=== PATIENT | female | born 1990 | race Caucasian/White ===

== ENCOUNTER 2018-12-01 11:29 | Emergency (ER) | payer OTHER ==
[~2018-12-01] VITALS: Ht 165.1 cm; Wt 48.5 kg
[2018-12-01 11:47] VITALS: BP 127/85
[2018-12-01] MEDS ORDERED: HYDROcodone/APAP 5/325 TABLET PO ONE (12:30)
[2018-12-01] MEDS ORDERED: HYDROcodone/APAP 5/325 TABLET ONE (12:37)
--- NOTE | 2018-12-01 12:58 | NUR ---
PT GIVEN DC INSTRUCTIONS AND SCRIPTS. PT EDUCATED REGARDING DC MEDICATIONS. PT AMB TO DC WITH STEADY GAIT. NO ACUTE DISTRESS AT DC.
== END 2018-12-01 12:59 | disposition home or self-care (01) ==
LOC: ED 12:53
DX: S90.32XA Contusion of left foot, initial encounter (principal); Z90.49 Acquired absence of other specified parts of digestive tract; X50.1XXA Overexertion from prolonged static or awkward postures, initial encounter; Y93.89 Activity, other specified; Y92.009 Unspecified place in unspecified non-institutional (private) residence as the place of occurrence of the external cause; Y99.8 Other external cause status
CPT/HCPCS: 99283

== ENCOUNTER 2019-10-09 12:01 | Emergency (ER) | payer MEDICAID ==
[~2019-10-09] VITALS: Ht 165.1 cm; Wt 48.1 kg
[2019-10-09 12:04] VITALS: BP 98/81
--- NOTE | 2019-10-09 12:37 | NUR ---
PT TO ROOM FROM LOBBY AT THIS TIME.
--- NOTE | 2019-10-09 12:50 | NUR ---
ASSUMED CARE OF PT FROM [facility] AT THIS TIME. AMBULATORY IN ROOM WITH STEADY GAIT. 28 Y/O F PT REPORTS "PAIN IN MY JAW FOR 4 WEEKS, I THINK IT'S SWOLLEN AND IT MAY BE DISLOCATED, TAKING IBUPROFEN/ADVIL AND TYLENOL, NOTHING WORKING, HURTS TO TALK OR MOVE MOUTH. I WAS JUST POPPING MY JAW LIKE NORMAL ONE MORNING AND IT FELT OFF, PAIN SINCE." RATES PAIN 8/10 IN JAW. A&OX4. CONT PULSE OX, BP MONITORS APPLIED. VSS. CALL LIGHT IN REACH. FALL PRECAUTIONS IN PLACE. AWAITING EVALUATION BY ERP.
--- NOTE | 2019-10-09 13:00 | NUR ---
DR. JENSEN AT BEDSIDE FOR EVALUATION
--- NOTE | 2019-10-09 13:44 | NUR ---
REPORT AND CARE TO BREAK RN JULIET AT THIS TIME.
--- NOTE | 2019-10-09 13:46 | NUR ---
TASK RN: PT NOT IN ROOM WHEN THIS RN WENT TO PROVIDE DC INSTRUCTIONS.
== END 2019-10-09 13:48 | disposition home or self-care (01) ==
LOC: ED 13:16
DX: M26.622 Arthralgia of left temporomandibular joint (principal); Z76.5 Malingerer [conscious simulation]; Z72.9 Problem related to lifestyle, unspecified
CPT/HCPCS: 99282

== ENCOUNTER 2020-04-15 22:51 | Emergency (ER) | payer MEDICAID ==
[~2020-04-15] VITALS: Ht 165.1 cm; Wt 55.0 kg
[2020-04-15 23:10] VITALS: BP 126/93
[2020-04-15 23:42] LABS: ALANINE AMINOTRANSFERASE 15 U/L (12-78); ALBUMIN 4.2 g/dL (3.4-5.0); ANION GAP 7 mmol/L (5-15); CALCIUM 8.7 mg/dL (8.5-10.1); CHLORIDE 110 mmol/L (98-107); CREATININE 0.59 mg/dL (0.55-1.02)
[2020-04-15 23:47] LABS: ALKALINE PHOSPHATASE 76 U/L (45-117); BILIRUBIN,TOTAL 0.4 mg/dL (0.2-1.0); TOTAL PROTEIN 8.6 g/dL (6.4-8.2)
[2020-04-15 23:59] LABS: BASOPHILS % (AUTO) 1 % (0-1); EOSINOPHILS % (AUTO) 1 % (1-7); LYMPHOCYTES % (AUTO) 36 % (22-44); MEAN CORPUSCULAR HEMOGLOBIN 30.7 pg (27.0-34.8); MEAN CORPUSCULAR HGB CONC 33.3 g/dL (32.4-35.8); MEAN PLATELET VOLUME 8.5 fL (7.4-10.4); MONOCYTES % (AUTO) 8 % (2-9); NEUTROPHILS % (AUTO) 54 % (42-75); PLATELET COUNT 327 x10^3/uL (130-400); RED BLOOD COUNT 4.86 x10^6/uL (3.82-5.3); RED CELL DISTRIBUTION WIDTH 12.5 % (9.6-15.2)
[2020-04-16 00:01] LABS: MD NO
--- NOTE | 2020-04-16 01:22 | NUR ---
CALLED FOR PT. PT NOT IN LOBBY AT THIS TIME.
--- NOTE | 2020-04-16 02:00 | NUR ---
CALLED FOR PT. PT NOT IN LOBBY OR IN RESTROOMS.
--- NOTE | 2020-04-16 02:37 | NUR ---
3RD ATTEMPT - CALLED FOR PT. PT NOT IN LOBBY.
== END 2020-04-16 02:41 | disposition left against medical advice (07) ==
LOC: ED 04-16 02:35
DX: R10.84 Generalized abdominal pain (principal)
CPT/HCPCS: 36415; 80053; 83690; 84703; 85025; 99283